=== PATIENT | male | born 1985 | race Caucasian/White ===

== ENCOUNTER 2018-08-28 17:15 | Emergency (ER) | payer OTHER ==
[~2018-08-28] VITALS: Ht 175.3 cm; Wt 68.0 kg
[2018-08-28] MEDS ORDERED: GABAPENTIN 100100 MG PO (17:51)
[2018-08-28] MEDS ORDERED: MEDROL DOSPAK21 TA1 PO (17:51)
[2018-08-28 17:58] VITALS: BP 136/93
== END 2018-08-28 18:00 | disposition home or self-care (01) ==
LOC: M.ERS 17:15
DX: M54.12 Radiculopathy, cervical region (principal); G89.29 Other chronic pain